=== PATIENT | male | born 2000 | race African-American/Black ===

== ENCOUNTER → 2020-02-04 | Outpatient (CLI) | payer BC, OTHER ==
[~2020-02-04] VITALS: Ht 175.3 cm; Wt 63.5 kg
[~2020-02-04] MED LIST: ACET325T9 PO; SINCALIDE 1.3 MCG in IV NORMAL SALINE 50ML 30 ML IV ONE
--- NOTE | 2020-02-04 08:02 | RAD ---
ABDOMEN LTD History: Right upper quadrant pain, epigastric pain, vomiting after eating Comparison: None. Findings: Multiple sonographic images of the abdomen are submitted. There is no abnormality of the liver, hepatic echogenicity within normal limits. Right lobe of the liver measured 16.9 cm longitudinal. There is no demonstrable abnormality of the visualized pancreas. There is segmental visualization of the inferior vena cava. Right kidney measured 9.2 x 4.2 x 3.6 cm, no hydronephrosis. There is segmental visualization of the inferior vena cava. Impression: 1. No abnormality is demonstrated. Electronically signed by: Edwin Pimentel MD (02/04/2020 7:59 AM) [id number]
--- NOTE | 2020-02-04 13:06 | RAD ---
Examination: Hepatobiliary Scan: History: Right upper quadrant pain. Technique: 5.5 mCi technetium 99m Choletec was administered intravenously and spot views were obtained on the gamma camera for a Nuclear Medicine hepatobiliary scan. 1.3 mcg of CCK drip was administered over 30 minutes and the region of interest was drawn around the gallbladder and gallbladder ejection fraction was calculated. Findings: There is rapid uptake of activity from the blood pool and concentration in the liver. Activity seen in the gallbladder and small bowel. There is decreased gallbladder response to CCK and the gallbladder ejection fraction is 27%. Impression: 1. Decreased gallbladder ejection fraction likely biliary dyskinesia or chronic cholecystitis. Electronically signed by: Segundo Moncada MD (02/04/2020 1:02 PM) [id number]
== END ==
LOC: US 07:19
PROVIDERS: ATTEND Internal Medicine Gastroenterology
DX: K81.1 Chronic cholecystitis (principal); R11.2 Nausea with vomiting, unspecified; R10.13 Epigastric pain
CPT/HCPCS: 76705; 78227; A9537; J2805

== ENCOUNTER → 2020-02-17 | Outpatient (CLI) | payer BC, OTHER ==
[~2020-02-17] MED LIST changes: +OXYC-325 PO; +OXYC1TAB15 PO; -SINCALIDE 1.3 MCG in IV NORMAL SALINE 50ML 30 ML IV ONE
== END ==
LOC: LAB 14:54
PROVIDERS: ATTEND Surgery
DX: Z01.812 Encounter for preprocedural laboratory examination (principal); Z20.828 Contact with and (suspected) exposure to other viral communicable diseases; K82.8 Other specified diseases of gallbladder
CPT/HCPCS: U0003

== ENCOUNTER 2020-02-20 07:58 | Day surgery (SDC) | payer BC, OTHER ==
[~2020-02-20] VITALS: Ht 177.8 cm; Wt 66.0 kg
[~2020-02-20 07:58] MED LIST changes: +ACETAMINOPHEN 500 MG TABLET PO ONE; +HYDROmorphone 2 MG/ML VIAL IVP PRN; +IV RINGERS,LACTATED 1000ML 1,000 ML IV SCH; +LIDOCAINE 1% PF 2 ML VIAL. ID PRN; +MORPHINE SULFATE 2 MG/ML VIAL. IVP PRN; +ONDANSETRON PF 4 MG/2 ML VIAL. IVP PRN; -OXYC-325 PO; -OXYC1TAB15 PO; +PROCHLORPERAZINE 10 MG/2 ML VIAL. IVP PRN; +ceFAZolin SODIUM IV Push 1 GM VIAL. IVP PRN; +fentaNYL PF VIAL 100 MCG/2 ML VIAL IVP PRN
[2020-02-20] MEDS ORDERED: INDOCYANINE GREEN 25 MG VIAL. IVP ONE (08:00)
[2020-02-20] MEDS ORDERED: BUPIVACAINE-EPI 0.25%-1:200000 MPF 30 ML VIAL. INJ ONE (08:00)
[2020-02-20] MEDS ORDERED: fentaNYL PF VIAL 100 MCG/2 ML VIAL ONE ×2 (08:31→10:39)
[2020-02-20] MEDS ORDERED: ROCURONIUM 50 MG/5 ML VIAL. ONE (08:31)
[2020-02-20] MEDS ORDERED: MIDAZOLAM HCL/PF 2 MG/2 ML VIAL. ONE (08:31)
[2020-02-20] MEDS ORDERED: KETOROLAC 30 MG/ML VIAL. ONE (08:34)
[2020-02-20] MEDS ORDERED: SEVOFLURANE 61 TO 120 MINUTES. IH ONE (08:34)
[2020-02-20] MEDS ORDERED: DEXAMETHASONE SOD PHOS 4 MG/ML VIAL ONE (08:34)
[2020-02-20] MEDS ORDERED: PROPOFOL 10 MG/ML (20ML) VIAL. IV ONE (08:34)
[2020-02-20] MEDS ORDERED: LIDOCAINE 2% PF 5 ML VIAL. ONE (08:34)
[2020-02-20] MEDS ORDERED: ONDANSETRON PF 4 MG/2 ML VIAL. ONE (09:30)
[2020-02-20] MEDS ORDERED: GLYCOPYRROLATE 1 MG/5 ML VIAL. ONE (09:53)
[2020-02-20] MEDS ORDERED: NEOSTIGMINE METHYLSULFATE 5 MG/5 ML SYRINGE. ONE (09:53)
--- NOTE | 2020-02-20 10:12 | PDOC4 ---
Operative Note Operative Note Date: 1028 at 1009 Preoperative diagnosis: Biliary dyskinesia Postoperative diagnosis: Same Procedure: Robotic assisted laparoscopic cholecystectomy with ICG 9 cholangiogram Surgeon: Jason Specimen: Gallbladder Dictation: Patient is 19-year-old male with right upper quadrant abdominal pain postprandial nausea HIDA scan showed ejection fraction of under 30%. Procedure of robotic assisted laparoscopic cholecystectomy was explained to the patient detail risk benefits were also discussed including bleeding infection injury to intra-abdominal contents possible necessitating further or open operations alternatives to this procedure also discussed with the patient who seemed to understand and gave both verbal and written consent to have the procedure performed. Patient was taken to the operating room placed in the supine position general anesthesia was initiated once patient was sleeping intubated his abdomen was prepped and draped usual sterile fashion using ChloraPrep. An area just below the umbilicus was injected quarter percent Marcaine with epinephrine incision was made 11 blade scalpel and a varies needle was placed within the abdomen creating pneumoperitoneum once this was complete 12 mm port was placed and the camera was placed within the abdomen which was inspected no other abnormalities were noted 8 mm da Thomas port was placed in the lower left midabdomen and in the lower right abdomen under direct visualization the dome of the gallbladder is grasped with a alligator clamp which was placed through a separate incision in the right upper quadrant. The da Thomas robot was brought and docked all port sites surgeon went to the robotic console using a grasper and hook cautery the triangle was dissected of its here tissues exposing the cystic duct and cystic artery cholangiogram was done with ICG 9 showed anatomy of the cystic duct and common bile duct were visualized no obstructions noted. The cystic duct was clipped with hemolock clip x2 as well as the cystic artery hemolock clip x1 cystic duct was then transected with Endo Mona scissors and the cystic artery was transected with electrocautery the gallbladder was taken off the liver with hook electrocautery. Surgeon went back to the operative field the da Thomas robot was undocked from all ports a Endo Catch bag was placed through the 12 mm port and the gallbladder placed within the catch bag removed and the umbilicus. Ports were all removed the fascial defect at the umbilicus was closed with a [id number] 0 Vicryl suture and the skin was reapproximated all port sites for subcuticular Monocryl Mastisol Steri-Strips and island dressings were applied. Patient was awakened and extubated in the operating room taken to recovery in stable condition all sponge instrument needle counts listed as correct estimated blood loss 10 mL YAYA YOU MD Feb 20, 2020 10:12
--- NOTE | 2020-02-20 10:14 | DISCH ---
DISCHARGE INSTRUCTIONS Condition on Discharge Condition on Discharge: Stable Activity After Discharge Activity Instructions for Disc: Avoid exertion Other activity instructions: No lifting more than 20 pounds for 2 weeks Diet after Discharge Diet after Discharge: Low Fat Wound Incision Care Other wound/incision instructi: May shower in 24 hours Contacting the after DC Call your doctor for: If your condition worsens Follow-Up Follow up with: Dr. You in 2 weeks YAYA YOU MD Feb 20, 2020 10:14
[2020-02-20] MEDS ORDERED: OXYC1TAB15 PO (10:52)
[2020-02-20] MEDS ORDERED: OXYC-325 PO (10:54)
[2020-02-20] MEDS ORDERED: oxyCODONE/APAP 5/325 1 TAB TABLET PO ONE ×2 (11:00)
[2020-02-20 11:25] VITALS: BP 127/73
--- NOTE | 2020-02-27 13:13 | PATHOLOGY ---
[facility] Accession Number: [id number] . 01 Material submitted: . gallbladder - GALLBLADDER . 01 Clinical history: . BILIARY,DYSKINESIA . 02 Diagnosis: Gallbladder, excision: - Chronic cholecystitis, mild; negative for malignancy. - Cholesterolosis. (CARLOSK:roby; 02/24/2020) MBR 02/24/2020 1750 Local . 02 Electronically signed: . Sharan Pate MD, Pathologist NPI- [id number] . 01 Gross description: . The specimen is received in formalin, labeled "Thomas Cobos, gallbladder". Received is an intact gallbladder measuring 4.8 x 2.2 x 2.1 cm in greatest dimensions displaying a blue-fleming serosal surface. Opening the specimen reveals a velvety, bile-stained mucosa with a gallbladder wall thickness of 0.1 cm. Calculi are not present, and no masses or lesions are noted grossly. Salesperson Floor Coverings sections, to include the proximal margin, are submitted in cassette A1. (CAA; 02/21/2020) QA/[facility] 02/21/2020 1054 Local . 02 Pathologist provided ICD-10: K81.1, K82.4 . 02 CPT . 450146 Specimen Comment: A courtesy copy of this report has been sent to [phone], [phone] Specimen Comment: [id number] Specimen Comment: Report sent to / Performed at: [facility] [address], [place], [place] [id number] MD Ramon Patel MD Phone: [phone] Performed at: [address] [address] [address], [place], [place] [id number] MD Aleksandar Agudelo MD Phone: [phone]
== END 2020-02-20 11:52 | disposition home or self-care (01) ==
LOC: SURG 07:58
PROVIDERS: ATTEND Surgery
DX: K81.1 Chronic cholecystitis (principal); Z87.891 Personal history of nicotine dependence; Z82.49 Family history of ischemic heart disease and other diseases of the circulatory system; Z83.3 Family history of diabetes mellitus; Z79.899 Other long term (current) drug therapy
CPT/HCPCS: 47563; A7015; J0690; J1100; J1885; J2250; J2405; J2704; J2710; J3010; J3490; J7030; S2900

== ENCOUNTER → 2020-04-27 | Outpatient (CLI) | payer BC, OTHER ==
[~2020-04-27] MED LIST changes: -ACETAMINOPHEN 500 MG TABLET PO ONE; -HYDROmorphone 2 MG/ML VIAL IVP PRN; -IV RINGERS,LACTATED 1000ML 1,000 ML IV SCH; -LIDOCAINE 1% PF 2 ML VIAL. ID PRN; -MORPHINE SULFATE 2 MG/ML VIAL. IVP PRN; -ONDANSETRON PF 4 MG/2 ML VIAL. IVP PRN; +OXYC-325 PO; +OXYC1TAB15 PO; -PROCHLORPERAZINE 10 MG/2 ML VIAL. IVP PRN; +SUCR1TAB35 PO; -ceFAZolin SODIUM IV Push 1 GM VIAL. IVP PRN; -fentaNYL PF VIAL 100 MCG/2 ML VIAL IVP PRN
== END ==
LOC: LAB 11:47
PROVIDERS: ATTEND Internal Medicine Gastroenterology
DX: Z01.812 Encounter for preprocedural laboratory examination (principal); Z20.828 Contact with and (suspected) exposure to other viral communicable diseases
CPT/HCPCS: U0003

== ENCOUNTER → 2020-04-29 | Day surgery (SDC) | payer BC, OTHER ==
[~2020-04-29] MED LIST changes: +IV RINGERS,LACTATED 1000ML 1,000 ML IV SCH; +LIDOCAINE 2% PF 5 ML VIAL. ONE; +PROPOFOL 10 MG/ML (20ML) VIAL. IV ONE
[2020-04-29 08:50] VITALS: BP 107/69
== END | disposition home or self-care (01) ==
LOC: ENDOS 07:27
PROVIDERS: ATTEND Internal Medicine Gastroenterology
DX: R11.2 Nausea with vomiting, unspecified (principal); K31.89 Other diseases of stomach and duodenum; K29.70 Gastritis, unspecified, without bleeding; K31.5 Obstruction of duodenum; J45.909 Unspecified asthma, uncomplicated; Z79.899 Other long term (current) drug therapy; Z98.890 Other specified postprocedural states; Z90.49 Acquired absence of other specified parts of digestive tract; Z87.891 Personal history of nicotine dependence; Z72.89 Other problems related to lifestyle
CPT/HCPCS: 43239; J2704

== ENCOUNTER 2021-09-21 12:50 | Emergency (ER) | payer BC, OTHER ==
[~2021-09-21] VITALS: Ht 177.8 cm; Wt 69.9 kg
[~2021-09-21 12:50] MED LIST changes: -IV RINGERS,LACTATED 1000ML 1,000 ML IV SCH; -LIDOCAINE 2% PF 5 ML VIAL. ONE; -PROPOFOL 10 MG/ML (20ML) VIAL. IV ONE
[2021-09-21 13:05] VITALS: BP 141/67
[2021-09-21] MEDS ORDERED: MUPIROCIN 2 % OINTMENT 22GM TUBE. TP STA (13:39)
[2021-09-21] MEDS ORDERED: NAPROXEN 500 MG TABLET PO STA (13:40)
[2021-09-21] MEDS ORDERED: DIPHTH,PERTUSS(ACELL),TET TOX 0.5 ML DISP.SYRIN. VAX IM ONE (13:45)
[2021-09-21] MEDS ORDERED: HYDROcodone/APAP 5/325MG 1 TAB TABLET PO ONE (13:45)
--- NOTE | 2021-09-21 13:48 | PHYS DOC ---
Past Medical History Additional Past Medical Histor: JONAS Past Surgical History: Cholecystectomy General Adult EDM: Chief Complaint: LACERATION/AVULSION HPI: HPI: Patient is a 21 year old male who presents the ED today with right forearm laceration. Patient states he fell into a glass coffee table yesterday afternoon. He states he was drunk and he fell into a glass coffee table. He states he cut his forearm pulling his forearm from the glass table. He denies hitting his head on the ground. Denies any loss of consciousness. States his tetanus is not up-to-date Review of Systems: Review of Systems: Constitutional: Denies fever or chills. [] Eyes: Denies change in visual acuity. [] HENT: Denies nasal congestion or sore throat. [] Respiratory: Denies cough or shortness of breath. [] Cardiovascular: Denies chest pain or edema. [] GI: Denies abdominal pain, nausea, vomiting, bloody stools or diarrhea. [] : Denies dysuria. [] Musculoskeletal: Denies back pain or joint pain. [] Integument: Reports right forearm laceration Neurologic: Denies headache, focal weakness or sensory changes. [] Psychiatric: Denies depression or anxiety. [] Heart Score: C/O Chest Pain: N/A Risk Factors: Risk Factors: DM, Current or recent (<one month) smoker, HTN, HLP, family history of CAD, obesity. Risk Scores: Score 0 - 3: 2.5% MACE over next 6 weeks - Discharge Home Score 4 - 6: 20.3% MACE over next 6 weeks - Admit for Clinical Observation Score 7 - 10: 72.7% MACE over next 6 weeks - Early Invasive Strategies Current Medications: Current Medications Medications (Trade) Dose Ordered Sig/Cipriano Start Time Stop Time Status Last Admin Dose Admin Diphtheria/ Tetanus/Acell Pertussis (Boostrix) 0.5 ml ONCE ONCE 09/21/21 13:45 09/21/21 13:46 UNV Mupirocin (Bactroban) 1 joel 1X STAT 09/21/21 13:39 09/21/21 13:40 UNV Allergies: Allergies: Allergies Coded Allergies Type Severity Reaction Last Updated Verified No Known Drug Allergies 02/20/20 No Physical Exam: PE: Constitutional: Well developed, well nourished, no acute distress, non-toxic appearance. [] HENT: Normocephalic, atraumatic, bilateral external ears normal, oropharynx moist, no oral exudates, nose normal. [] Eyes: PERRLA, EOMI, conjunctiva normal, no discharge. [] Neck: Normal range of motion, no tenderness, supple, no stridor. [] Cardiovascular:Heart rate regular rhythm, no murmur [] Lungs & Thorax: Bilateral breath sounds clear to auscultation [] Abdomen: Bowel sounds normal, soft, no tenderness, no masses, no pulsatile ma sses. [] Skin: Right forearm with a laceration 7 x 2 cm, this is a second-degree laceration, fortunately it occurred yesterday and cannot be closed today. There is also a skin burn type of rash next to this wound roughly 3 x 3 cm. There are multiple tiny superficial lacerations around both lacerations. There is a smaller superficial laceration on the right ring finger distal end dorsal aspect roughly 0.5 x 0.5 cm. There is no obvious tendon involvement. Full range of motion to the right forearm, right elbow, right fingers. Adequate dorsiflexion and plantarflexion of the right forearm. +2 right radial pulse. Adequate radial, medial, ulnar sensation to the right fingers. Cap refill less than 2 seconds of right fingers. Back: No tenderness, no CVA tenderness. [] Extremities: No tenderness, no cyanosis, no clubbing, ROM intact, no edema. [] Neurologic: Alert and oriented X 3, normal motor function, normal sensory funct ion, no focal deficits noted. [] Psychologic: Affect normal, judgement normal, mood normal. [] Current Patient Data: Vital Signs: Vital Signs Date Time Temp Pulse Resp B/P (MAP) Pulse Ox O2 Delivery O2 Flow Rate FiO2 09/21/21 13:05 98.2 79 18 141/67 (91) 98 Room Air 98.2 EKG: EKG: [] Radiology/Procedures: Radiology/Procedures: [] Course & Med Decision Making: Course & Med Decision Making Pertinent Labs and Imaging studies reviewed. (See chart for details) This is a 21-year-old male patient presenting to the ED today with right forearm laceration and right ring finger laceration, lacerations occurred yesterday around noon. None of them can be closed right now. He was given tetanus, and RX for mupirocin ointment given to him. Wound care instructions and return precautions discussed. Follow-up with PCP in 1 week Jillian Disclaimer: Jillian Disclaimer: This electronic medical record was generated, in whole or in part, using a voice recognition dictation system. Departure Departure Impression: Primary Impression: Forearm laceration Qualified Codes: S51.811A - Laceration without foreign body of right forearm, initial encounter Disposition: HOME / SELF CARE / HOMELESS Condition: STABLE Referrals: NO PCP (PCP) follow up with your doctor in one week Patient Instructions: Laceration Care, Adult Additional Instructions: You have a laceration to your right forearm and right ring finger. You can shower and wash the areas with regular soap and water once a day. Keep the areas clean and dry. Please apply mupirocin to the areas twice a day for 10 days. Please monitor the areas for any signs of infection including but not limited to increased redness, warmth, yellow drainage from the areas and return to the ED if they occur. Follow-up with your primary care doctor in 1 to 2 weeks Scripts Naproxen (NAPROXEN) 500 Mg Tablet 1 TAB PO BID for pain, #14 TAB 0 Refills Prov: ESTEBAN WOLFF [employer] 09/21/21 Hydrocodone Bit/Acetaminophen (HYDROCODONE-APAP 5-325 ) 1 Tab Tablet 1 TAB PO PRN Q6HRS PRN for PAIN, #10 TAB 0 Refills Prov: ESTEBAN WOLFF APRN 09/21/21 Mupirocin (MUPIROCIN OINTMENT) 22 Gm Oint...g. 1 JOEL TP BID for WOUND CARE, #1 EACH Prov: ESTEBAN WOLFF [employer] 09/21/21 ESTEBAN WOLFF [employer] September 21, 2021 13:47
[2021-09-21] MEDS ORDERED: MUPI22OI2 TP (13:51)
[2021-09-21] MEDS ORDERED: NAPR-514 PO (13:51)
[2021-09-21] MEDS ORDERED: HYDR-2761 PO (13:51)
== END 2021-09-21 14:37 | disposition home or self-care (01) ==
LOC: ER 12:50
DX: S51.811A Laceration without foreign body of right forearm, initial encounter (principal); W18.02XA Striking against glass with subsequent fall, initial encounter; Y93.89 Activity, other specified; Y92.89 Other specified places as the place of occurrence of the external cause; Y99.8 Other external cause status
CPT/HCPCS: 90471; 90715; 99283